=== PATIENT | female | born 1965 | race Two or more races ===

== ENCOUNTER 2019-03-05 11:15 | Inpatient (IN) | payer OTHER ==
[~2019-03-05] VITALS: Ht 172.7 cm; Wt 106.6 kg
== END 2019-03-20 16:58 | disposition home or self-care (01) | DRG 743 ==
LOC: OB/GYN 03-17 10:03 → O/R 03-17 10:03 → OB/GYN 03-17 11:15
PROVIDERS: ADMIT Obstetrics & Gynecology
PROC: 0UT90ZZ Resection of Uterus, Open Approach (ICD-10-PCS; principal; 2019-03-18)
PROC: 0UT70ZZ Resection of Bilateral Fallopian Tubes, Open Approach (ICD-10-PCS; 2019-03-18)
DX: D25.1 Intramural leiomyoma of uterus (principal); N73.6 Female pelvic peritoneal adhesions (postinfective); N84.0 Polyp of corpus uteri; N83.8 Other noninflammatory disorders of ovary, fallopian tube and broad ligament